=== PATIENT | female | born 1995 | race Caucasian/White ===

== ENCOUNTER → 2019-01-31 | Outpatient (CLI) | payer OTHER, SELFPAY ==
--- OUTSIDE RECORDS SUMMARY | 2019-02-04 18:59 | XMS RPT_ITS | CCD ---
:1995 External Reference #:[id number] Author Organization [facility] Care Team Providers Name Role Phone Didier Unavailable Unavailable Longsdorf, A Unavailable Unavailable Didier Unavailable Unavailable Longsdorf, A Unavailable Unavailable Didier Unavailable Unavailable Longsdorf, A Unavailable Unavailable Longsdorf, A Unavailable Unavailable Longsdorf, A Unavailable Unavailable Longsdorf, A Unavailable Unavailable Longsdorf, A Unavailable Unavailable Longsdorf, A Unavailable Unavailable Longsdorf, A Unavailable Unavailable Longsdorf, A Unavailable Unavailable COOPERRIDER II, H Unavailable Unavailable Longsdorf Primary Care Provider LONG Attending Unavailable LONG Referring Unavailable LONGSDORF, A Primary Care Unavailable Medications Current Medications Medication Name Sig Date Prescriber Location Ethinyl Estradiol / norgestimate-ethinyl Idiatou Carpio [facility] norgestimate estradiol (SPRINTEC [facility] [place] 28) 0.25-35 MG-MCG Tab [facility] tablet Take 1 tablet ([id number]) by mouth daily. Active zolpidem zolpidem 5 MG [facility] tablet Take 5 mg by [facility] [place] mouth At bedtime as [facility] Center needed for Sleep. ([id number]) Active Completed/Discontinuned Medications Medication Name Sig Date Prescriber Location Mupirocin mupirocin 2 % Ointment 04-30-2018 - [facility] ointment Apply 1 05-05-2018 [facility] Application topically 3 [facility] times daily for 5 days. (432 10) 1 Tube 0 04/30/2018 05/05/2018 Active Problems Category Problem Name Status Date Location Nonmalignant breast Pain of breast Active [facility] conditions [facility] ([id number]) Skin and subcutaneous Cellulitis of chest wall Active [facility] tissue infections [facility] ([id number]) Results Result Name Value Range Unit Interpretation Flag Date Location progress on 2018-01 Protein mass HNO ID: [id number]: Bari vega 01-17-2018 [facility] shantelle Main IIService: [place] ([id number]) (none)Author Type: OPTOMETRISTType: Progress NotesFiled: 01/17/2018 11:07 AMNote Text:ASSESSMENT/PLAN:1. Myopia of right eye - ICD9: 367.1, ICD10: H52.112. Regular astigmatism, left eye - ICD9: 367.21, ICD10: H52.222Update glasses power. Recommend new contact lens materials to improvecomfort. Recheck trial fit if change desired. Continue yearlyevaluations.3. Keratoconjunctivitis sicca of both eyes not specified as Sjogren's -ICD9: 370.33, ICD10: H16.223Discussed dry eye drops for use as needed.I have confirmed and edited as necessary the relevant ophthalmic history,review of systems, surgical history, and ophthalmological examinationfindings as obtained by the ophthalmic technical staff. I have seen andexamined Barrie Lopez. I have discussed the examination findings,diagnosis, and treatment options with the patient and/or the patient'sfamily. I have also reviewed and agree with the assessment and plan asstated above and agree with all its relevant components. I gave thepatient the opportunity to ask questions about the findings, diagnosis,and treatment options.Bari Main, II, OD igp w/hpv rfx [id number] on 2017-04-20 Diagnosis: See Ref Lab Report Normal 04-20-2017 [facility] ([id number]) Comment: Order Comment: LMP: 04/08/17 Performed By: #### [id number] ####PRISCILA Send Outs [id number] [place] [address] pathology ([facility]) on 2017-04-13 Pathology ([facility]) FINAL GYNECOLOGIC CYTOLOGY Normal 04-13-2017 [facility] Healthcare [id number] ([id number]) ADEQUACYSatisfactory for Evaluation. Endocervical cells/transformation zone componentpresent.GENERAL CATEGORIZATIONNegative for Intraepithelial Lesion or MalignancyCLINICAL HISTORYLMP: 04/08/2017SPECIMEN(A) SCREENING CERVICAL/ENDOCERVICAL LIQUID-BASED PAPPerformed at [facility], [address], [place] [address]Dsjejbfx by: Signed Out by: MICHELE RESENDIZ, Commercial Hvac Service Technician Reported: 04/19/2017 Comment: Performed By: #### MANUFACTURING INSPECTOR ####U [facility] [address] [place] [address] Vital Signs Vital Sign Description Value / Unit Date Location The following section is limited to 5 en tries per type and includes entries from the following time range: 20180430 - 20180410 2. Body Temperature 98.1 [degF] 04-30-2018 [facility] ([id number]) BP Diastolic 80 mm[Hg] 04-30-2018 [facility] ([id number]) BP Systolic 128 mm[Hg] 04-30-2018 [facility] ([id number]) Pulse (Heart Rate) 77 /min 04-30-2018 [facility] ([id number]) Pulse Oximetry 98 % 04-30-2018 [facility] ([id number]) Respiratory Rate 16 /min 04-30-2018 [facility] ([id number]) Encounters Date Type Reason Provider Location 04-30-2018 - Office outpatient Pain of breast Gergabeiha G [facility] 04-30-2018 new 20 minutes Long Goins use Outpatient Care Comment: Breast pain (Primary Dx); Cellulitis of chest wall 01-17-2018 - Patient encounter Ivy A Facility:[facility] 01-18-2018 [facility] Services A [facility] BARI MAIN II 11-20-2017 - Patient encounter Ivy A Facility:[facility] 11-20-2017 [facility] 08-17-2017 - Patient encounter Ivy A Facility:[facility] 08-18-2017 [facility] A [facility] Ivy A [facility] 04-13-2017 - Patient encounter Dena Didier Ivy Fa cility:[facility] 04-14-2017 A [facility] 04-13-2017 - Patient encounter [facility] Ivy Trinh cility:[facility] Womens 04-14-2017 A [facility] Care 04-30-2018 Patient encounter PRATIMAJoni LONG [facility] procedure NINI ANN [facility] IVY [place] ([id number]) [facility] Plan of Treatment Plan Description Date Location INFLUENZA VACCINE (#1) INFLUENZA VACCINE (#1) 2017 [facility] [place] [facility] ([id number]) PAP SMEAR DISCUSSION PAP SMEAR DISCUSSION 02-12-2016 [facility] ([id number]) TDAP (ADULT) TDAP (ADULT) 2014 [facility] ([id number]) GONORRHEA SCREEN GONORRHEA SCREEN 2013 [facility] ([id number]) TETANUS TETANUS 2013 [facility] ([id number]) CHLAMYDIA SCREEN CHLAMYDIA SCREEN 2011 [facility] [place] [facility] (58772) HIV SCREENING DISCUSSION HIV SCREENING DISCUSSION 02-12-2008 [facility] ([id number]) HPV VACCINE ADOL (1 - HPV VACCINE ADOL (1 - 2006 [facility] Female 3-dose series) Female 3-dose series) [facility] ([id number]) Payers Payer Name Policy Number Location [facility] ([id number]) 1500 [facility] ([id number]) [facility] P[facility] POS [id number] [facility] ([id number]) [id number] [facility] ([id number]) [id number] [facility] ([id number]) [id number] [facility] ([id number]) [id number] [facility] ([id number]) [id number] [facility] ([id number]) [id number] [facility] ([id number]) The following information is from the original human readable contentNo Payer Records FoundNo Payer Records FoundNo Payer Records Found Social History Type Social History Description Date Locat ion Tobacco smoking status Unknown if ever smoked 04-30-2018 [facility] [place] [facility] ([id number]) Sex Assigned At Not on file [facility] [place] [facility] ([id number]) The following information is from the original human readable contentNo Social History Records FoundNo Social History Records FoundNo Social History Records FoundNo Social History Records FoundNo Social History Records FoundNo Social History Records FoundNo Social History Records Found Summary Purpose Family History No Family History Records FoundNo Family History Records FoundNo Family History Records FoundNo Family History Records Found Advance Directives No Advanced Directives Records FoundNo Advanced Directives Records FoundNo Advanced Directives Records FoundNo Advanced Directives Records Found Reason for Referral Status Reason Specialty Diagnoses / Referred By Referred To Procedures Contact Contact New Request Breast Clinic Diagnoses Breast pain Nini Ann MD [address] [facility] [address] [place] [id number] Instructions Patient Instructions - Nini Ann MD - 04/30/2018 6:04 PM EST Cellulitis Cellulitis is an infection of the deep layers of skin. A break in the skin, such as a cut or scratch, can let bacteria under the skin. If the bacteria get to deep layers of the skin, it can be serious.If not treated, cellulitis can get into the bloodstream and lymph nodes. The infection can then spread throughout the body. This causes serious illness. Cellulitis causes the affected skin to become red, swollen, warm, and sore. The reddened areas have a visible border. An open sore may leak fluid (pus). You may have a fever, chills, and pain. Cellulitis is treated with antibiotics taken for 7 to 10 days. An open sore may be cleaned and covered with cool wet gauze. Symptoms should get better 1 to 2 days after treatment is started. Make sure to take all the antibiotics for the full number of days until they are gone. Keep taking the medicineeven if your symptoms go away. Home care Follow these tips: ? Limit the use of the part of your body with cellulitis.? ? If the infection is on your leg, keep your leg raised while sitting. This will help to reduce swelling. ? Take all of the antibiotic medicine exactly as directed until it is gone. Do not miss any doses, especially during the first 7 days. Don?t stop taking the medicine when your symptoms get better. ? Keep the affected area clean and dry. ? Wash your hands with soap and warm water before and after touching your skin. Anyone else who touches your skin should also wash his or her hands. Don't share towels. Follow-up care Follow up with your healthcare provider, or as advised. If your infection does not go away on the first antibiotic, your healthcare provider will prescribe a different one. When to seek medical advice Call your healthcare provider right away if any of these occur: ? Red areas that spread ? Swelling or pain that gets worse ? Fluid leaking from the skin (pus) ? Fever higher of 100.4? F (38.0? C) or higher after 2 days on antibiotics Date Last Reviewed: 12/09/2015 ? [id number] [employer]. [address] [place] [address]. All rights reserved. This information is not intended as a substitute for professional medical care. Always follow yourhealthcare professional's instructions. in this encounter History of Present Illness Nini Ann MD - 04/30/2018 5:40 PM ESTFormatting of this note may be different from the original. dEPARTMENT of Emergency Medicine CHIEF COMPLAINT Rash (rash on left breast x 2 days , pt states she feeling a little pain on breast ) ISHA Lopez is a 23 y.o. female who presents for evaluation of several days of painful rash to herleft breast. Denies any injuries, trauma, new lotion/detergents or any other specific inciting events. Rashes described as a burning sensation that is constant and mild. No associated nipple discharge, fever/chills, weight loss, night sweats. Has a history of breast cancer in her grandmother that she believes started at the age of 50. No known familial history of breast or ovarian cancer before the age of 50 REVIEW OF SYSTEMS Review of Systems + breast rash - nipple discharge, fevers, weight loss PAST MEDICAL HISTORY No past medical history on file. SURGICAL HISTORY No past surgical history on file. CURRENT MEDICATIONS Current Outpatient Prescriptions Medication Sig Dispense Refill ? norgestimate-ethinyl estradiol (SPRINTEC 28) 0.25-35 MG-MCG Tab tablet Take 1 tablet by mouth daily. ? zolpidem 5 MG Tab tablet Take 5 mg by mouth At bedtime as needed for Sleep. ? mupirocin 2 % Ointment ointment Apply 1 Application topically 3 times daily for 5 days. 1 Tube 0 No current facility-administered medications for this visit. ALLERGIES No Known Allergies FAMILY HISTORY History reviewed. No pertinent family history. SOCIAL HISTORY Social History Social History ? Marital status: Single Spouse name: N/A ? Number of children: N/A ? Years of education: N/A Occupational History ? Not on file. Social History Main Topics ? Smoking status: Not on file ? Smokeless tobacco: Never Used ? Alcohol use Yes Comment: occ ? Drug use: No ? Sexual activity: Not on file Other Topics Concern ? Not on file Social History Narrative ? No narrative on file PHYSICAL EXAM Blood pressure 128/80, pulse 77, temperature 98.1 ?F (36.7 ?C), temperature source Oral, resp. rate 16, last menstrual period 04/09/2018, SpO2 98 %. Physical Exam Gen: Awake and alert. In NAD CV: Normal rate, regular rhythm. No cyanosis Pulm: Normal rate and WOB. No stridor Neuro: Awake and alert.CN 2-12 grossly intact. Moving all 4 extremities symmetrically and with purpose. MSK: No deformities. No joint effusions Skin: There is a 2 cm ovoid irregular area of tender erythema just above the nipple of the left breast that is tender to palpation with underlying induration. There is overlying honey crusting. No associated/underlying breast mass. Nipple is without eversion or discharge. Lymph: No axillary or supraclavicular lymphadenopathy on the left Psych: Good eye contact. Normal mood and affect ED COURSE & MEDICAL DECISION MAKING @EDCOURSE@ 20-year-old female presenting for evaluation of a rash to her left breast. Vital signs are reassuring and exam is benign. She does have what appears to be impetigo in the skin just above the nipple of the left breast. This does not have the classic appearance of peau d'orange, and the patient is an otherwise low risk for breast cancer. However, out of an abundance of caution, we'll provide a referralfor close follow-up in the breast center to assure improvement. In the interim, we will treat with topical mupirocin. Strict return precautions discussed and provided ICD-10-CM 1. Breast pain N64.4 AMB REFERRAL TO BREAST CLINIC 2. Cellulitis of chest wall L03.313 in this encounter Assessments Diagnosis Breast pain - Primary Mastodynia Cellulitis of chest wall Cellulitis and abscess of trunk Additional Source Comments FOR RECORDS PERTAINING TO PATIENTS WHO ARE OR HAVE BEEN ENROLLED IN A CHEMICAL DEPENDENCY/SUBSTANCE ABUSE PROGRAM, SOME INFORMATION MAY BE OMITTED. This clinical summary was aggregated from multiple sources. Caution should be exercised in using it in the provision of clinical care. This summary normalizes information from multiple sources, and as a consequence, information in this document may materially changethe coding, format and clinical context of patient data. In addition, data may be omittedin some cases. CLINICAL DECISIONS SHOULD BE BASED ON THE PRIMARY CLINICAL RECORDS. [facility] provides no warranty or guarantee of the accuracy or completeness of information in this document. UNRECOGNIZED CONTENT PROVIDED BELOW FOR UNRECOGNIZED SECTION INFORMATION SOURCE DATE CREATED AUTHOR AUTHOR'S ORGANIZATIO N 10/02/2017 [facility] DATE CREATED AUTHOR AUTHOR'S ORGANIZATIO N 02/19/2018 [facility] DATE CREATED AUTHOR AUTHOR'S ORGANIZATIO N 02/21/2018 [facility] DATE CREATED AUTHOR AUTHOR'S ORGANIZATIO N 05/10/2018 [facility] UNRECOGNIZED CONTENT PROVIDED BELOW FOR UNRECOGNIZED SECTION Reason for Visit Reason Comments Rash rash on left breast x 2 days , pt states she feeling a little pain on breast
[2019-02-05 12:21] LABS: HPV Reflexed? NOT INDICATED
== END | disposition home or self-care (01) ==
LOC: LABSPEC 14:22
PROVIDERS: Family Provider Family Medicine; PCP Family Medicine; Referring Provider Obstetrics & Gynecology; Visit Provider Obstetrics & Gynecology
DX: Z12.4 Encounter for screening for malignant neoplasm of cervix (principal)
CPT/HCPCS: 88175; G0145

== ENCOUNTER → 2019-08-13 | Outpatient (CLI) | payer OTHER, SELFPAY ==
[2019-08-13 08:46] VITALS: BMI 32.2
--- NOTE | 2019-08-13 10:06 | US_ITS ---
STUDY: FIRST TRIMESTER OBSTETRICAL ULTRASOUND REASON FOR EXAM: Female, 24 years old DATING LMP: June 12, 2019. TECHNIQUE: Transvaginal TECHNICAL QUALITY: Adequate. PRIOR ULTRASOUND: None. FINDINGS: There is visualization of a single gestational sac in a normal intrauterine position. There is a visualized yolk sac. The placenta is non-visualized. There is visualization of a live embryo. The crown-rump length (CRL) measures 1.9 cm, indicating an estimated gestational age (EGA) of 8 weeks, 3 days. There is demonstrated cardiac activity with a heart rate of 157 bpm. The estimated gestation age (EGA) by LMP is 8 weeks, 6 days. The estimated date of delivery (GIL) by LMP is March 18, 2020. The estimated gestation age (EGA) by US is 8 weeks, 3 days. The estimated date of delivery (GIL) by US is March 21, 2020. The uterus measures 8.8 cm x 6.3 cm x 4.8 cm. There is no demonstrated uterine fibroid. The cervix is closed. The right ovary is not visualized. The left ovary measures 3.1 cm x 3.1 cm x 2.1 cm. There is no left ovarian cyst. There is no visualized left adnexal mass or complex lesion. There is no fluid in the cul de sac. US/Init OB < 14Wks US IMPRESSION: Single live intrauterine gestation with a mean gestational age of 8 weeks and 3 days. Electronically Signed: Sam Heath, at 10:47 EDT , Service support ,
[2019-08-13 10:51] LABS: Absolute Lymphocyte Count 2.04 X10^3/uL (0.83-4.51); Absolute Neutrophil Count 10.9 X10^3/uL (2.0-7.7); Basophil# 0.06 X10^3/uL; Basophil% 0.4 % (0-1); Eosinophil# 0.11 X10^3/uL; Eosinophils% 0.8 % (0-5); Lymphocyte # 2.04 X10^3/ul (4.0); Lymphocyte % 14.3 % (19-41); Mean Corp Hgb Conc 34.2 g/dL (32-36); Mean Corpuscular Hgb 29.1 pg (27.0-32.0); Mean Corpuscular Volume 85.2 fL (81-99); Mean Platelet Vol. 9.4 fl (6.2-12.0); Monocyte# 1.07 X10^3/uL; Monocyte% 7.5 % (0-10); NRBC Flagged by Analyzer 0 % (0-5); Neutrophil # 10.93 X10^3/uL (2.7-7.7); Neutrophil % 76.7 % (47-70); Platelet Count 293 K/mm3 (150-450); RBC Distribution Width CV 13.2 % (11.6-14.6); RBC Distribution Width SD 40.8 fl (35.1-43.9); Red Blood Count 4.46 M/mm3 (4.2-5.4); White Blood Count 14.3 K/mm3 (4.4-11.0)
[2019-08-13 12:13] LABS: HIV - WCH Non-Reactive (Nonreactive); Hepatitis B Surface Antigen Non-Reactive (Nonreactive); Hepatitis C Antibody Non-Reactive (Nonreactive); Rubella IgG 4.5 IU/mL
[2019-08-13 13:44] LABS: Chlamydia Trachomatis by PCR Negative (Negative); Neisserai gonorrhoeae by PCR Negative (Negative); Probe Check PASS; Sample Adequacy Control PASS; Specimen Processing Control PASS
[2019-08-14 08:08] LABS: Rapid Plasmin Reagin (RPR) NONREACTIVE (NONREACTIVE)
== END | disposition home or self-care (01) ==
PROVIDERS: Referring Provider Obstetrics & Gynecology; Visit Provider Obstetrics & Gynecology
DX: Z34.90 Encounter for supervision of normal pregnancy, unspecified, unspecified trimester (principal)
CPT/HCPCS: 36415; 76801; 85025; 86592; 86703; 86762; 86803; 86850; 86900; 86901; 87340; 87491; 87591

== ENCOUNTER → 2019-09-12 | Outpatient (CLI) | payer OTHER, SELFPAY ==
[2019-09-12 08:48] VITALS: BMI 31.9
[2019-09-12 10:12] LABS: NATERA MAILED SPECIMEN
[2019-09-12 10:51] LABS: Amphetamine Urine VISTA NEGATIVE (<1000 ng/mL); Barbiturate Urine VISTA NEGATIVE (< 200 ng/mL); Benzodiazepine Urine VISTA NEGATIVE (< 200 ng/mL); Cocaine Urine VISTA NEGATIVE (< 300 ng/mL); Ecstacy Urine VISTA NEGATIVE (< 500 ng/mL); Methadone Urine VISTA NEGATIVE (< 300 ng/mL); PCP Urine VISTA NEGATIVE (< 25 ng/mL); THC Urine VISTA NEGATIVE (< 50 ng/mL); Vista UDS pH Range 6
== END | disposition home or self-care (01) ==
PROVIDERS: Referring Provider Nurse Practitioner Women's Health; Visit Provider Nurse Practitioner Women's Health
DX: Z34.81 Encounter for supervision of other normal pregnancy, first trimester (principal)
CPT/HCPCS: 36415; 80307; 87086; 87088

== ENCOUNTER → 2020-01-01 | Outpatient (CLI) | payer OTHER, SELFPAY ==
[2019-12-05 15:53] VITALS: BMI 31.9
[2020-01-01 16:22] LABS: Absolute Lymphocyte Count 2.06 X10^3/uL (0.83-4.51); Basophil# 0.02 X10^3/uL; Basophil% 0.2 % (0-1); Eosinophil# 0.15 X10^3/uL; Eosinophils% 1.4 % (0-5); Hematocrit 30.5 % (37-47); Hemoglobin 9.7 g/dL (12.0-15.0); Lymphocyte # 2.06 X10^3/ul (4.0); Mean Corp Hgb Conc 31.8 g/dL (32-36); Mean Corpuscular Hgb 27.1 pg (27.0-32.0); Mean Corpuscular Volume 85.2 fL (81-99); Monocyte# 0.64 X10^3/uL; Monocyte% 5.9 % (0-10); NRBC Flagged by Analyzer 0 % (0-5); Neutrophil # 7.95 X10^3/uL (2.7-7.7); Platelet Count 347 K/mm3 (150-450); RBC Distribution Width CV 12.5 % (11.6-14.6); RBC Distribution Width SD 38.5 fl (35.1-43.9); Red Blood Count 3.58 M/mm3 (4.2-5.4); White Blood Count 10.9 K/mm3 (4.4-11.0)
[2020-01-01 16:33] LABS: Glucose Challenge Gest 1H 50g 147 mg/dL (70-140)
== END | disposition home or self-care (01) ==
LOC: LAB 14:37
PROVIDERS: Referring Provider Obstetrics & Gynecology; Visit Provider Obstetrics & Gynecology
DX: Z34.90 Encounter for supervision of normal pregnancy, unspecified, unspecified trimester (principal)
CPT/HCPCS: 36415; 82950; 85025

== ENCOUNTER → 2020-01-07 | Outpatient (CLI) | payer OTHER, SELFPAY ==
[2020-01-07 09:28] VITALS: BMI 31.9
[2020-01-07 10:16] LABS: ROM Internal Control Test YES-OK TO RESULT pt. (Internal QC); ROM Patient Test Negative (Negative)
== END | disposition home or self-care (01) ==
LOC: LABSPEC 09:48
PROVIDERS: Referring Provider Obstetrics & Gynecology; Visit Provider Obstetrics & Gynecology
DX: O26.899 Other specified pregnancy related conditions, unspecified trimester (principal); N89.8 Other specified noninflammatory disorders of vagina; Z3A.00 Weeks of gestation of pregnancy not specified
CPT/HCPCS: 84112

== ENCOUNTER → 2020-01-19 | Outpatient (CLI) | payer OTHER, SELFPAY ==
[2020-01-16 14:42] VITALS: BMI 31.9
[2020-01-19 11:19] LABS: Glucose GTT-Gestation. Fasting 79 mg/dL (<105)
[2020-01-19 13:26] LABS: Glucose GTT-Gestational 2 Hr 166 mg/dL (<165)
[2020-01-19 13:29] LABS: Glucose GTT-Gestational 1 Hr 177 mg/dL (<190)
[2020-01-19 14:16] LABS: Glucose GTT-Gestational 3 Hr 144 L (<145)
== END | disposition home or self-care (01) ==
LOC: LAB 09:53
PROVIDERS: Referring Provider Obstetrics & Gynecology; Visit Provider Obstetrics & Gynecology
DX: Z34.90 Encounter for supervision of normal pregnancy, unspecified, unspecified trimester (principal)
CPT/HCPCS: 36415; 82951; 82952

== ENCOUNTER → 2020-01-29 | Outpatient (CLI) | payer OTHER, SELFPAY ==
[2020-01-29 15:20] VITALS: BMI 34.0
[2020-01-29 16:03] LABS: Absolute Lymphocyte Count 2.34 X10^3/uL (0.83-4.51); Absolute Neutrophil Count 6.9 X10^3/uL (2.0-7.7); Basophil# 0.02 X10^3/uL; Basophil% 0.2 % (0-1); Eosinophil# 0.13 X10^3/uL; Eosinophils% 1.3 % (0-5); Lymphocyte # 2.34 X10^3/ul (4.0); Lymphocyte % 22.8 % (19-41); Mean Corp Hgb Conc 31.4 g/dL (32-36); Mean Corpuscular Hgb 27.1 pg (27.0-32.0); Mean Corpuscular Volume 86.2 fL (81-99); Monocyte# 0.88 X10^3/uL; Monocyte% 8.6 % (0-10); NRBC Flagged by Analyzer 0 % (0-5); Neutrophil # 6.86 X10^3/uL (2.7-7.7); Neutrophil % 66.7 % (47-70); Platelet Count 304 K/mm3 (150-450); RBC Distribution Width CV 16.1 % (11.6-14.6); RBC Distribution Width SD 50.3 fl (35.1-43.9); Red Blood Count 4.06 M/mm3 (4.2-5.4); White Blood Count 10.3 K/mm3 (4.4-11.0)
== END | disposition home or self-care (01) ==
LOC: LAB 15:41
PROVIDERS: Referring Provider Obstetrics & Gynecology; Visit Provider Obstetrics & Gynecology
DX: O99.019 Anemia complicating pregnancy, unspecified trimester (principal); D64.9 Anemia, unspecified; Z3A.00 Weeks of gestation of pregnancy not specified
CPT/HCPCS: 36415; 85025

== ENCOUNTER 2021-06-24 12:13 | Outpatient (CLI) | payer OTHER, SELFPAY ==
[2021-06-24 13:29] LABS: Absolute Lymphocyte Count 2.12 X10^3/uL (0.83-4.51); Basophil# 0.06 X10^3/uL; Basophil% 0.7 % (0-1); Eosinophil# 0.14 X10^3/uL; Eosinophils% 1.7 % (0-5); Hematocrit 42.3 % (37-47); Hemoglobin 14.3 g/dL (12.0-15.0); Lymphocyte # 2.12 X10^3/ul (0.83-4.51); Lymphocyte % 26.2 % (19-41); Mean Corp Hgb Conc 33.8 g/dL (32-36); Mean Corpuscular Hgb 29.4 pg (27.0-32.0); Mean Platelet Vol. 9.5 fl (6.2-12.0); Monocyte# 0.76 X10^3/uL; Monocyte% 9.4 % (0-10); NRBC Flagged by Analyzer 0 % (0-5); Neutrophil # 4.98 X10^3/uL (2.7-7.7); Neutrophil % 61.6 % (47-70); Platelet Count 295 K/mm3 (150-450); RBC Distribution Width CV 12.7 % (11.6-14.6); RBC Distribution Width SD 40.1 fl (35.1-43.9); Red Blood Count 4.86 M/mm3 (4.2-5.4); White Blood Count 8.1 K/mm3 (4.4-11.0)
== END 2021-06-24 23:59 | disposition home or self-care (01) ==
PROVIDERS: Referring Provider Obstetrics & Gynecology; Visit Provider Obstetrics & Gynecology
DX: R10.2 Pelvic and perineal pain (principal); Z87.898 Personal history of other specified conditions
CPT/HCPCS: 36415; 85025; 87086; 87088

== ENCOUNTER 2021-07-01 16:18 | Outpatient (CLI) | payer OTHER, SELFPAY ==
[2021-07-04 18:07] LABS: Chlamydia By Nucleic Acid AMP Negative (Negative)
[2021-07-04 21:18] LABS: Gonococcus By Nucleic Acid AMP Negative (Negative)
== END 2021-07-01 23:59 | disposition home or self-care (01) ==
LOC: LABSPEC 16:20
PROVIDERS: Visit Provider Obstetrics & Gynecology
DX: R10.2 Pelvic and perineal pain (principal)
CPT/HCPCS: 87070; 87086; 87088; 87205; 87491; 87591

== ENCOUNTER → 2021-10-07 | Outpatient (CLI) | payer OTHER, SELFPAY ==
[2021-10-13 15:11] LABS: HPV Reflexed? NOT INDICATED
== END | disposition home or self-care (01) ==
PROVIDERS: Referring Provider Obstetrics & Gynecology; Visit Provider Obstetrics & Gynecology
DX: Z12.4 Encounter for screening for malignant neoplasm of cervix (principal)
CPT/HCPCS: 88175; G0145

== ENCOUNTER → 2022-01-05 | Outpatient (CLI) | payer OTHER, SELFPAY ==
[2022-01-05 11:45] LABS: Amphetamine Urine VISTA NEGATIVE (<1000 ng/mL); Barbiturate Urine VISTA NEGATIVE (< 200 ng/mL); Benzodiazepine Urine VISTA NEGATIVE (< 200 ng/mL); Cocaine Urine VISTA NEGATIVE (< 300 ng/mL); Ecstacy Urine VISTA NEGATIVE (< 500 ng/mL); Methadone Urine VISTA NEGATIVE (< 300 ng/mL); PCP Urine VISTA NEGATIVE (< 25 ng/mL); THC Urine VISTA NEGATIVE (< 50 ng/mL); Vista UDS pH Range 5
[2022-01-05 11:46] LABS: NATERA MAILED SPECIMEN
[2022-01-05 12:10] LABS: Absolute Neutrophil Count 10.4 X10^3/uL (2.0-7.7); Basophil# 0.06 X10^3/uL; Basophil% 0.4 % (0-1); Eosinophil# 0.15 X10^3/uL; Eosinophils% 1.1 % (0-5); Hematocrit 39.2 % (37-47); Hemoglobin 13.2 g/dL (12.0-15.0); Lymphocyte % 16.1 % (19-41); Mean Corp Hgb Conc 33.7 g/dL (32-36); Mean Corpuscular Hgb 29.3 pg (27.0-32.0); Mean Corpuscular Volume 86.9 fL (81-99); Mean Platelet Vol. 10.1 fl (6.2-12.0); Monocyte# 0.85 X10^3/uL; Monocyte% 6.2 % (0-10); NRBC Flagged by Analyzer 0 % (0-5); Neutrophil # 10.39 X10^3/uL (2.7-7.7); Neutrophil % 75.8 % (47-70); Platelet Count 288 K/mm3 (150-450); RBC Distribution Width CV 13.3 % (11.6-14.6); RBC Distribution Width SD 42.1 fl (35.1-43.9); Red Blood Count 4.51 M/mm3 (4.2-5.4); White Blood Count 13.7 K/mm3 (4.4-11.0)
[2022-01-05 12:30] LABS: Hemoglobin A1c 5.1 % (3.8-5.6)
[2022-01-05 13:22] LABS: HIV - WCH Non-Reactive (Nonreactive); Hepatitis B Surface Antigen Non-Reactive (Nonreactive); Hepatitis C Antibody Non-Reactive (Nonreactive); Rubella IgG Reactive (Nonreactive); Syphilis Antibodies Non-reactive
[2022-01-06 22:06] LABS: Chlamydia By Nucleic Acid AMP Negative (Negative)
[2022-01-08 09:09] LABS: Gonococcus By Nucleic Acid AMP Negative (Negative)
== END | disposition home or self-care (01) ==
PROVIDERS: Referring Provider Obstetrics & Gynecology; Visit Provider Obstetrics & Gynecology
DX: Z34.81 Encounter for supervision of other normal pregnancy, first trimester (principal); Z31.430 Encounter of female for testing for genetic disease carrier status for procreative management; Z3A.11 11 weeks gestation of pregnancy
CPT/HCPCS: 36415; 80307; 83036; 85025; 86703; 86762; 86780; 86803; 86850; 86900; 86901; 87086; 87088; 87340; 87491; 87591